=== PATIENT | male | born 1980 | race Caucasian/White ===

== ENCOUNTER → 2017-07-18 | Outpatient (CLI) | payer MEDICAID ==
--- NOTE | 2017-07-18 17:23 | RADIOLOGY REPORT (SQ) ---
EXAM DESCRIPTION: KNEE RIGHT 4 VIEWS COMPLETED DATE/TIME: 07/18/2017 5:14 pm REASON FOR STUDY: PAIN IN RIGHT KNEE M25.561 PAIN IN RIGHT KNEE COMPARISON: None. NUMBER OF VIEWS: Four views. TECHNIQUE: AP, lateral, and both oblique radiographic images acquired of the right knee. LIMITATIONS: None. FINDINGS: MINERALIZATION: Normal. BONES: No acute fracture or dislocation. No worrisome bone lesions. No significant osteophytes. JOINT: Intra-articular loose body. OTHER: No other significant finding. IMPRESSION: No acute fracture. Intra-articular loose body. TECHNICAL DOCUMENTATION: JOB ID: [id number] [employer]- All Rights Reserved
== END ==
LOC: OD 16:53
PROVIDERS: ATTEND Nurse Practitioner Acute Care
DX: M23.41 Loose body in knee, right knee (principal)

== ENCOUNTER 2018-06-12 01:34 | Emergency (ER) | payer OTHER ==
--- NOTE | 2018-06-12 02:12 | ER Document Report ---
ED Medical Screen (RME) - General Chief Complaint: Syncope Stated Complaint: HEADACHE Time Seen by Provider: 06/12/18 01:49 Notes: Patient is a 38-year-old male presenting to the emergency department complaining of walking into work tonight of the holiday and expressed feeling lightheaded, dizzy, nauseous, developing a headache. Patient states he felt the same way yesterday evening while at work. States he went home and was able to sleep all day and had no symptoms. Patient states since presenting to the emergency department he only now has a slight headache. Patient denies lightheadedness, dizziness, nauseous feeling. 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 Patient denies any trauma or injury to his head. Past medical history: None Medications: None Allergies: None Physical exam: cranial nerves II through XII grossly intact, patient alert, interacts well, in no active distress. Pupils equal round reacting to light, no photophobia. I have greeted and performed a rapid initial assessment of this patient. A comprehensive ED assessment and evaluation of the patient, analysis of test results and completion of the medical decision making process will be conducted by additional ED providers. TRAVEL OUTSIDE OF THE [place] IN LAST 30 DAYS: No Physical Exam - Vital signs Vitals: Temp Pulse Resp BP Pulse Ox 98 F 106 H 16 146/81 H 95 06/12/18 01:36 06/12/18 01:36 06/12/18 01:36 06/12/18 01:36 06/12/18 01:36 Course - Vital Signs Vital signs: Temp Pulse Resp BP Pulse Ox 98 F 106 H 16 146/81 H 95 06/12/18 01:36 06/12/18 01:36 06/12/18 01:36 06/12/18 01:36 06/12/18 01:36 Doctor's Discharge - Discharge Referrals: SHIN VALENZUELA NP [Primary Care Provider] - Follow up as needed
[2018-06-12] MEDS ORDERED: NORMAL SALINE 1000 ML 1,000 ML IV ONE (02:49)
[2018-06-12] MEDS ORDERED: DIPHENHYDRAMINE HCL 50 MG/ML VIAL IV ONE (02:49)
[2018-06-12] MEDS ORDERED: METOCLOPRAMIDE HCL INJ/PF 10 MG/2 ML SDV IV ONE (02:49)
--- NOTE | 2018-06-12 02:52 | ER Document Report ---
ED General - General Chief Complaint: Syncope Stated Complaint: HEADACHE Time Seen by Provider: 06/12/18 01:49 Notes: Patient is a pleasant 38-year-old male who presents with complaint of a headache. Headache is in the frontal aspect of his head. Says the headache comes on he gets dizzy and feels lightheaded. Tonight when he is at work he came on he felt very dizzy but did not pass out or blacked out. He says he felt like he is coming very close to pass out and went down to his knees. No weakness or numbness into extremities. Bright lights and noises make it worse. No previous history of migraines. He says that it first occurred yesterday while at work. It then went away. Today when he went to work again it happened again but it was more severe this time. Headache occurred around midnight. Headache came on initially was a bit mild but then became worse. No fevers. No recent infections. No recent trauma to his head. 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 He denies any heavy lifting. He says he sits most the day does not do anything exertional. TRAVEL OUTSIDE OF THE [place] IN LAST 30 DAYS: No Past Medical History - Social History Smoking Status: Unknown if Ever Smoked Frequency of alcohol use: None Drug Abuse: None Family History: Reviewed & Not Pertinent Patient has suicidal ideation: No Patient has homicidal ideation: No Renal/ Medical History: Denies: Hx Peritoneal Dialysis Review of Systems - Review of Systems Notes: My Normal Review Basic REVIEW OF SYSTEMS: CONSTITUTIONAL : Denies fever, chills, or sweats. Denies recent illness. EENT: Denies eye, ear, throat, or mouth pain or symptoms. Denies nasal or sinus congestion. CARDIOVASCULAR: Denies chest pain. RESPIRATORY: Denies cough, cold, or chest congestion. Denies shortness of breath, difficulty breathing, or wheezing. GASTROINTESTINAL: Denies abdominal pain. Nausea. No vomiting. MUSCULOSKELETAL: Denies neck or back pain or joint pain or swelling. SKIN: Denies rash or skin lesions. NEUROLOGICAL: Denies altered mental status or loss of consciousness. Has a headache. Denies weakness or paralysis or loss of use of either side. Denies problems with gait or speech. Denies sensory or motor loss. ALL OTHER SYSTEMS REVIEWED AND NEGATIVE. Physical Exam - Vital signs Vitals: Temp Pulse Resp BP Pulse Ox 98 F 106 H 16 146/81 H 95 06/12/18 01:36 06/12/18 01:36 06/12/18 01:36 06/12/18 01:36 06/12/18 01:36 - Notes Notes: General Appearance: Well nourished, alert, cooperative, no acute distress, mild obvious discomfort. Vitals: reviewed, See vital signs table. Head: no swelling or tenderness to the head Eyes: PERRL, EOMI, Conjuctiva clear Mouth: No decreasd moisture Throat: No tonsillar inflammation, No airway obstruction, No lymphadenopathy Neck: Supple, no neck tenderness, No thyromegaly Lungs: No wheezing, No rales, No rhonci, No accessory muscle use, good air exchange bilaterally. Heart: Normal rate, Regular rythm, No murmur, no rub Abdomen: Normal BS, soft, No rigidity, No abdominal tenderness, No guarding, no rebound, no abdominal masses, no organomegaly Extremities: strength 5/5 in all extremities, good pulses in all extremities, no swelling or tenderness in the extremities, no edema. Skin: warm, dry, appropriate color, no rash Neuro: speech clear, oriented x 3, normal affect, responds appropriately to questions. Cranial nerves II through XII are intact. Distal sensation intact. Patient moves all extremities without difficulty. Course - Re-evaluation Re-evalutation: 06/12/18 04:27 She is carbon monoxide levels come back very elevated. He is feeling much improved however still placed on nonrebreather for a little bit and then recheck his carbon monoxide level to make sure is returning back to normal. 06/12/18 06:24 The patient's very high initial level he is now completely symptomatically feels well. His repeat complex hemoglobin on the blood was 15. We then retracted via the carbon monoxide pulse oximeter and his level is now down to around 10. He is able stand and walk without any difficulty. He says his headache is completely gone. He says he has no symptoms whatsoever. Being that his initial level so high I did call and speak with poison control center and reviewed everything with him. They said can be discharged home being that his levels returned to a low level and his symptoms are completely resolved and is not ataxic. - Vital Signs Vital signs: Temp Pulse Resp BP Pulse Ox 98 F 106 H 16 146/81 H 95 06/12/18 01:36 06/12/18 01:36 06/12/18 01:36 06/12/18 01:36 06/12/18 01:36 - Laboratory Result Diagrams: 06/12/18 03:08 06/12/18 03:08 Laboratory results interpreted by me: 06/12/18 06/12/18 06/12/18 03:08 03:08 03:08 WBC 13.2 H Seg Neutrophils % 81.1 H Absolute Neutrophils 10.7 H Carboxyhemoglobin 37.7 H Glucose 142 H 06/12/18 05:38 WBC Seg Neutrophils % Absolute Neutrophils Carboxyhemoglobin 15.5 H Glucose Discharge - Discharge Clinical Impression: Carbon monoxide poisoning Qualifiers: Encounter type: initial encounter Injury intent: accidental or unintentional Qualified Code(s): T58.91XA - Toxic effect of carbon monoxide from unspecified source, accidental (unintentional), initial encounter Condition: Good Disposition: HOME, SELF-CARE Additional Instructions: Please avoid any exposure to your hotel until it has completely cleared. Please return to the ER immediately if you have recurrence of headache, dizziness, recurrent vomiting, or feel that you are worsening in any way.
[2018-06-12 03:17] LABS: ABSOLUTE BASOPHILS # (AUTO) 0.1 10^3/uL (0.0-0.2); ABSOLUTE LYMPHOCYTES (AUTO) 1.8 10^3/uL (0.5-4.7); ABSOLUTE MONOCYTES (AUTO) 0.6 10^3/uL (0.1-1.4); ABSOLUTE NEUT (AUTO) 10.7 10^3/uL (1.7-8.2); BASOPHILS % (AUTO) 0.4 % (0-2); EOSINOPHILS % (AUTO) 0.1 % (0-6); LYMPHOCYTES % (AUTO) 13.8 % (13-45); MEAN CORPUSCULAR HEMOGLOBIN 30.7 pg (27.0-33.4); MEAN CORPUSCULAR HGB CONC 35.7 g/dL (32.0-36.0); MEAN CORPUSCULAR VOLUME 86 fl (80-97); MONOCYTES % (AUTO) 4.6 % (3-13); PLATELET COUNT 336 10^3/uL (150-450); RED BLOOD COUNT 4.88 10^6/uL (4.35-5.55); RED CELL DISTRIBUTION WIDTH 13.6 % (11.5-14.0); SEGMENTED NEUTROPHILS % (AUTO) 81.1 % (42-78); TOTAL CELLS COUNTED % (AUTO) 100 %; WHITE BLOOD COUNT 13.2 10^3/uL (4.0-10.5)
[2018-06-12 03:28] LABS: ANION GAP 13 (5-19); BLOOD UREA NITROGEN 16 mg/dL (7-20); CARBON DIOXIDE 25 mmol/L (22-30); CHLORIDE 103 mmol/L (98-107); GLUCOSE 142 mg/dL (75-110); POTASSIUM 4.3 mmol/L (3.6-5.0); SODIUM 140.9 mmol/L (137-145)
--- NOTE | 2018-06-12 03:55 | RADIOLOGY REPORT (SQ) ---
EXAM DESCRIPTION: CT HEAD ANGIOGRAPHY WITHOUT THEN WITH IV CONTRAST COMPLETED DATE/TME: 06/12/2018 02:49 CLINICAL HISTORY: 38 years, Male, headache COMPARISON: None. TECHNIQUE: 808 Images stored on PACS. All CT scanners at this facility use dose modulation, iterative reconstruction, and/or weight based dosing when appropriate to reduce radiation dose to as low as reasonably achievable (ALARA). [facility]: Dose Right [facility]: CareDose [facility]: Dose Right [facility]: Teradose 4D [facility]: Introhive LIMITATIONS: None. FINDINGS: The vertebral basilar system is unremarkable. Negative for basilar tip aneurysm. The petrous and remaining intracranial portions of the internal carotid arteries are widely patent. There is a moderate degree of venous interference. However, the picayune of Toribio is intact. No CTA evidence for aneurysm or arteriovenous malformation. No CTA evidence for stenosis, vascular encasement, or displacement. IMPRESSION: Unremarkable CTA brain TECHNICAL DOCUMENTATION: Quality ID # [id number]: Final reports with documentation of one or more dose reduction techniques (e.g., Automated exposure control, adjustment of the mA and/or kV according to patient size, use of iterative reconstruction technique) 2010 [employer]- All Rights Reserved
[2018-06-12 07:24] VITALS: BP 134/85
--- NOTE | 2018-06-12 12:40 | EKG REPORT ---
SEVERITY:- ABNORMAL ECG - SINUS TACHYCARDIA PROBABLE LEFT ATRIAL ABNORMALITY INCOMPLETE RBBB AND LAFB BORDERLINE PROLONGED QT INTERVAL : Confirmed by: Reema Baker MD 12-Jun-2018 12:39:42
== END 2018-06-12 07:14 | disposition home or self-care (01) ==
LOC: ER 01:34
DX: T58.91XA Toxic effect of carbon monoxide from unspecified source, accidental (unintentional), initial encounter (principal); R55 Syncope and collapse; R51 Headache
CPT/HCPCS: 93005; 99284; 96361; 96374; 96375; 36415; 82375; 85025; 80048; 70496; 93010; J1200; J2765; J7030

== ENCOUNTER 2019-06-14 15:51 | Emergency (ER) | payer MEDICAID, OTHER ==
--- NOTE | 2019-06-14 16:26 | ER Document Report ---
ED Medical Screen (RME) - General Chief Complaint: High Blood Pressure Stated Complaint: BLOOD PRESSURE ISSUE Time Seen by Provider: 06/14/19 16:21 Primary Care Provider: GM BAUMANN DO [Primary Care Provider] - Follow up as needed Mode of Arrival: Ambulatory Information source: Patient Notes: 39-year-old male presented to ED complaining of elevated blood pressure last night at work. When he got home it was still elevated at 168/110. Dates he took 1 of his 's medications hydrochlorothiazide 50 mg and it did not do any good. He states he still has a headache dry mouth and vomiting x1 today. Patient states he did receive a couple of a blood pressure medication but is not officially on it yet. He states it was a lower milligrams of hydrochlorothiazi de. He does not smoke drink or use any illicit drugs. He states he does not have any previous medical history. Manual blood pressure is 142/88 in the right arm. I have greeted and performed a rapid initial assessment of this patient. A comprehensive ED assessment and evaluation of the patient, analysis of test results and completion of medical decision making process will be conducted by an additional ED providers. TRAVEL OUTSIDE OF THE [place] IN LAST 30 DAYS: No - Related Data Allergies/Adverse Reactions: No Known Allergies Allergy (Verified 06/14/19 16:17) Past Medical History - Social History Chew tobacco use (# tins/day): No Frequency of alcohol use: None Drug Abuse: None Renal/ Medical History: Denies: Hx Peritoneal Dialysis Physical Exam - Vital signs Vitals: Temp Pulse Resp BP Pulse Ox 97.8 F 102 H 16 168/98 H 96 06/14/19 15:55 06/14/19 15:55 06/14/19 15:55 06/14/19 15:55 06/14/19 15:55 Course - Vital Signs Vital signs: Temp Pulse Resp BP Pulse Ox 97.8 F 102 H 16 168/98 H 96 06/14/19 15:55 06/14/19 15:55 06/14/19 15:55 06/14/19 15:55 06/14/19 15:55 Doctor's Discharge - Discharge Referrals: GM BAUMANN DO [Primary Care Provider] - Follow up as needed
[2019-06-14 16:58] LABS: ABSOLUTE BASOPHILS # (AUTO) 0.1 10^3/uL (0.0-0.2); EOSINOPHILS % (AUTO) 0.3 % (0-6); RED CELL DISTRIBUTION WIDTH 13.1 % (11.5-14.0); TOTAL CELLS COUNTED % (AUTO) 100 %
[2019-06-14 17:03] LABS: APPEARANCE,URINE CLEAR; BILIRUBIN,URINE NEGATIVE (NEGATIVE); COLOR,URINE YELLOW; GLUCOSE, URINE NEGATIVE (NEGATIVE); KETONES,URINE NEGATIVE (NEGATIVE); PROTEIN,URINE NEGATIVE (NEGATIVE); URINE SPECIFIC GRAVITY 1.013; UROBILINOGEN,URINE NEGATIVE mg/dL (<2.0)
[2019-06-14 17:07] LABS: ABSOLUTE LYMPHOCYTES (AUTO) 2.4 10^3/uL (0.5-4.7); ABSOLUTE MONOCYTES (AUTO) 0.8 10^3/uL (0.1-1.4); ABSOLUTE NEUT (AUTO) 11.4 10^3/uL (1.7-8.2); BASOPHILS % (AUTO) 0.4 % (0-2); HEMATOCRIT 45.9 % (37.9-51.0); HEMOGLOBIN 15.8 g/dL (13.5-17.0); LYMPHOCYTES % (AUTO) 16.4 % (13-45); MEAN CORPUSCULAR HEMOGLOBIN 29.5 pg (27.0-33.4); MEAN CORPUSCULAR HGB CONC 34.5 g/dL (32.0-36.0); MEAN CORPUSCULAR VOLUME 85 fl (80-97); MONOCYTES % (AUTO) 5.6 % (3-13); PLATELET COUNT 374 10^3/uL (150-450); RED BLOOD COUNT 5.37 10^6/uL (4.35-5.55); SEGMENTED NEUTROPHILS % (AUTO) 77.3 % (42-78); WHITE BLOOD COUNT 14.8 10^3/uL (4.0-10.5)
[2019-06-14 17:17] LABS: ALBUMIN 5.2 g/dL (3.5-5.0); ALKALINE PHOSPHATASE 78 U/L (38-126); ANION GAP 14 (5-19); ASPARTATE AMINO TRANSFERASE 40 U/L (17-59); BILIRUBIN,DIRECT 0.1 mg/dL (0.0-0.4); BILIRUBIN,TOTAL 0.9 mg/dL (0.2-1.3); BLOOD UREA NITROGEN 13 mg/dL (7-20); CALCIUM 10.1 mg/dL (8.4-10.2); CARBON DIOXIDE 29 mmol/L (22-30); CHLORIDE 94 mmol/L (98-107); GLUCOSE 140 mg/dL (75-110); POTASSIUM 3.8 mmol/L (3.6-5.0); TOTAL PROTEIN 8.9 g/dL (6.3-8.2)
[2019-06-14] MEDS ORDERED: ACETAMINOPHEN 325 MG TABLET PO ONE (18:13)
[2019-06-14] MEDS ORDERED: KETOROLAC TROMETHAMINE 60 MG/2 ML SDV IM ONE (18:13)
--- NOTE | 2019-06-14 18:21 | ER Document Report ---
ED General - General Chief Complaint: Headache Stated Complaint: BLOOD PRESSURE ISSUE Time Seen by Provider: 06/14/19 16:21 Primary Care Provider: GM BAUMANN DO [Primary Care Provider] - Follow up in 3-5 days Mode of Arrival: Ambulatory Notes: 39-year-old male presents with headache that started this morning. States it was gradual in onset, started back of head and radiated to front. Patient states it is due to elevated blood pressure. States he had a similar headache 3 years ago and went to an ER and was given blood pressure medicine. Denies being formally diagnosed with hypertension. Patient took 1 dose of his 's HCTZ 50 mg p.o. this morning. Patient states his blood pressure at home was 160/100. States he also had one episode of nausea/vomiting this morning but denies any nausea currently. Denies blurry vision, chest pain, dyspnea, dizziness, abdominal pain.. TRAVEL OUTSIDE OF THE [place] IN LAST 30 DAYS: No - Related Data Allergies/Adverse Reactions: No Known Allergies Allergy (Verified 06/14/19 16:17) Past Medical History - General Information source: Patient - Social History Smoking Status: Unknown if Ever Smoked Chew tobacco use (# tins/day): No Frequency of alcohol use: None Drug Abuse: None Family History: Reviewed & Not Pertinent Patient has suicidal ideation: No Patient has homicidal ideation: No - Past Medical History Cardiac Medical History: Reports: Hx Hypertension Renal/ Medical History: Denies: Hx Peritoneal Dialysis Past Surgical History: Reports: Hx Orthopedic Surgery Review of Systems - Review of Systems Notes: Constitutional: Negative for fever. HENT: Negative for sore throat. Eyes: Negative for visual changes. Cardiovascular: Negative for chest pain. Respiratory: Negative for shortness of breath. Gastrointestinal: Positive for nausea vomiting. negative for abdominal pain, vomiting or diarrhea. Genitourinary: Negative for dysuria. Musculoskeletal: Negative for back pain. Skin: Negative for rash. Neurological: Positive for headache. Negative for weakness or numbness. 10 point ROS negative except as marked above and in HPI. Physical Exam - Vital signs Vitals: Temp Pulse Resp BP Pulse Ox 97.8 F 102 H 16 168/98 H 96 06/14/19 15:55 06/14/19 15:55 06/14/19 15:55 06/14/19 15:55 06/14/19 15:55 - Notes Notes: GENERAL: Well-appearing, well-nourished and in no acute distress. HEAD: Atraumatic, normocephalic. EYES: Pupils equal round and reactive to light, extraocular movements intact, sclera anicteric, conjunctiva are normal. NECK: Normal range of motion, supple without lymphadenopathy or JVD. LUNGS: Breath sounds clear to auscultation bilaterally and equal. No wheezes rales or rhonchi. HEART: Regular rate and rhythm without murmurs, rubs or gallops. ABDOMEN: Soft, nontender. No guarding, no rebound. No masses appreciated. EXTREMITIES: Normal range of motion, no pitting or edema. No clubbing or c yanosis. NEUROLOGICAL: Cranial nerves II through XII grossly intact. Normal speech, normal gait. No facial droop, no tongue deviation, strength equal bilaterally, upper/lower extremity strength equal bilaterally, sensory intact bilaterally. PSYCH: Normal mood, normal affect. SKIN: Warm, Dry, normal turgor, no rashes or lesions noted. Course - Re-evaluation Re-evalutation: 06/14/19 39-year-old male presents with gradual onset of headache. Nontoxic/well appearing. Patient is afebrile. Patient had one episode of nausea/vomiting this morning however denies any nausea currently. Attributes the headache to high blood pressure however is never been formally diagnosed with same. Patient states he had a similar symptoms 3 years ago and was treated with blood pressure medicine at a ER. Lab work is unremarkable, kidney function is normal. Patient denies chest pain, dyspnea, abdominal pain, dizziness, blurred vision. Discussed pt with attending, Dr. Armas who recommends toradol IM and tylenol PO to treat for headache and to send pt home with a few tablets of HCTZ with follow up. Discussed results with pt and recommendations with pt who voices understanding and agrees with plan of care. Return precautions discussed. All questions/concerns addressed prior to discharge. - Vital Signs Vital signs: Temp Pulse Resp BP Pulse Ox 97.8 F 102 H 19 141/98 H 98 06/14/19 15:55 06/14/19 15:55 06/14/19 18:01 06/14/19 18:01 06/14/19 18:01 - Laboratory Result Diagrams: 06/14/19 16:41 06/14/19 16:41 Laboratory results interpreted by me: 06/14/19 06/14/19 06/14/19 16:40 16:41 16:41 WBC 14.8 H Absolute Neuts (auto) 11.4 H Chloride 94 L Glucose 140 H POC Glucose 130 H Total Protein 8.9 H Albumin 5.2 H Urine Blood 06/14/19 16:41 WBC Absolute Neuts (auto) Chloride Glucose POC Glucose Total Protein Albumin Urine Blood SMALL H Discharge - Discharge Clinical Impression: Elevated blood pressure reading without diagnosis of hypertension Headache Qualifiers: Headache type: unspecified Headache chronicity pattern: acute headache Intractability: not intractable Qualified Code(s): R51 - Headache Condition: Stable Disposition: HOME, SELF-CARE Instructions: High Blood Pressure, Requiring Treatment ([facility]) Additional Instructions: Take medicine as prescribed. Take Tylenol/Motrin for headache. These follow-up with your primary care doctor listed. Return to the ER for any worsening symptoms, including worsening headache, blurred vision, vomiting, chest pain, shortness of breath or any other concerning symptoms. Prescriptions: Hydrochlorothiazide [Hydrodiuril 25 mg Tablet] 25 mg PO QAM #10 tablet Forms: Elevated Blood Pressure, Parent Work Note Referrals: GM BAUMANN DO [Primary Care Provider] - Follow up in 3-5 days
[2019-06-14 18:41] VITALS: BP 140/96
== END 2019-06-14 18:46 | disposition home or self-care (01) ==
LOC: ER 15:51
DX: R03.0 Elevated blood-pressure reading, without diagnosis of hypertension (principal); R51 Headache; R11.2 Nausea with vomiting, unspecified
CPT/HCPCS: 36415; 82962; 85025; 80053; 81001; J1885; 96372; 99283